=== PATIENT | male | born 1940 | race Caucasian/White ===

== ENCOUNTER 2017-07-24 10:36 | Emergency (ER) | payer OTHER ==
[~2017-07-24] VITALS: Ht 165.1 cm; Wt 73.6 kg
[2017-07-24 10:43] VITALS: BP 198/92
[2017-07-24] MEDS ORDERED: KETOROLAC 30 MG/ML VIAL IM ONE (10:45)
[2017-07-24] MEDS ORDERED: METHOCARBAMOL 500 MG TAB PO ONE (10:45)
--- NOTE | 2017-07-24 10:45 | NUR ---
77/M BIB FAMILY C/O MID BACK PAIN 10 POST TRIP AND FALL 07/23/17, DENIES LOC.DENIES N/V. AAOX4. LUNGS CLEAR BL; PATIENT STATES PAIN OF 10 AT THIS TIME; PATIENT POSITIONED FOR COMFORT; HOB ELEVATED; BEDRAILS UP X2; BED DOWN. ER MD MADE AWARE OF PT STATUS.
--- NOTE | 2017-07-24 10:50 | NUR ---
PT TAKEN TO X RAY
--- NOTE | 2017-07-24 11:44 | NUR ---
Patient being reevaluated by DR ORDONEZ at bedside.
[2017-07-24 11:49] VITALS: BP 128/87
--- NOTE | 2017-07-24 11:49 | NUR ---
Patient discharged with v/s stable. Written and verbal after care instructions given and explained. Patient alert, oriented and verbalized understanding of instructions. Ambulatory with steady gait. All questions addressed prior to discharge. ID band removed. Patient advised to follow up with PMD. Rx of tramadol, bobaxin & motrin given. Patient educated on indication of medication including possible reaction and side effects. Opportunity to ask questions provided and answered.
== END 2017-07-24 11:49 | disposition home or self-care (01) ==
LOC: MED 10:36
DX: M54.5 Low back pain (principal); W18.30XA Fall on same level, unspecified, initial encounter; Y93.89 Activity, other specified; Y92.89 Other specified places as the place of occurrence of the external cause; Y99.8 Other external cause status; I10 Essential (primary) hypertension; I48.91 Unspecified atrial fibrillation
CPT/HCPCS: 72100; 96372; 99284; J1885

== ENCOUNTER 2018-06-23 09:09 | Emergency (ER) | payer OTHER ==
[~2018-06-23] VITALS: Ht 160 cm; Wt 71.7 kg
[2018-06-23 09:15] VITALS: BP 130/73
--- NOTE | 2018-06-23 09:15 | NUR ---
c/o persistant right shoulder pain x2 wks notale soft tissue swelling right clavicular/neck area no subcutaneous Emphysema palpable denies recent injury---unable to lift rue about chest level. DENIES N/V/D; SKIN IS PINK/WARM/DRY; AAOX4 WITH EVEN AND STEADY GAIT; LUNGS CLEAR BL; HR EVEN AND REGULAR; PT DENIES ANY FEVER, CP, SOB, OR COUGH AT THIS TIME; PATIENT STATES PAIN OF 10/10 AT THIS TIME; VSS; PATIENT POSITIONED FOR COMFORT; HOB ELEVATED; BEDRAILS UP X2; BED DOWN. ER MD MADE AWARE OF PT STATUS.
--- NOTE | 2018-06-23 09:22 | NUR ---
PT AMBULATES TO BED 9
[2018-06-23] MEDS ORDERED: KETOROLAC 30 MG/ML VIAL IM ONE (09:35)
[2018-06-23] MEDS ORDERED: DEXAMETHASONE 10 MG/ML VIAL IM ONE (09:35)
--- NOTE | 2018-06-23 09:40 | NUR ---
XRAY AT BEDSIDE
[2018-06-23 10:33] VITALS: BP 130/73
== END 2018-06-23 10:35 | disposition home or self-care (01) ==
LOC: MED 09:09
DX: M75.41 Impingement syndrome of right shoulder (principal); I48.91 Unspecified atrial fibrillation; I10 Essential (primary) hypertension
CPT/HCPCS: 73030; 96372; 99283; J1100; J1885

== ENCOUNTER 2018-10-06 15:13 | Inpatient (IN) | payer OTHER ==
[~2018-10-06] VITALS: Ht 165.1 cm; Wt 72.6 kg
[~2018-10-06 15:13] MED LIST: ATOR40TA40 PO; AZIT250T3 PO; DILT90TA PO; LON2.5 PO; LOSA100T1 PO; ORE25 PO; WARF-18 PO
[2018-10-06 15:20] VITALS: BP 140/79
--- NOTE | 2018-10-06 15:20 | NUR ---
PT TRIAGED, EKG PERFORMED AT THIS TIME.
[2018-10-06] MEDS ORDERED: ACETAMINOPHEN EXTRA STRENGTH 500 MG TAB ONE (15:35)
[2018-10-06] MEDS ORDERED: ACETAMINOPHEN EXTRA STRENGTH 500 MG TAB PO ONE (15:35)
--- NOTE | 2018-10-06 15:36 | NUR ---
PT AMBULATED TO [facility], REPORT TO MIRZA LEMUS
--- NOTE | 2018-10-06 15:41 | NUR ---
PATIENT TAKEN FOR XRAY VIA WHEELCHAIR AT THIS TIME.
--- NOTE | 2018-10-06 16:18 | NUR ---
PT BIB DAUGHTER FOR PNEUMONIA. PT REPORTS BEING AT URGENT CARE THIS MORNING AND WAS REFFERRED TO ER FOR PNEUMONIA AFTER RECIEVING AN ABX INJECTION, PT UNABLE TO NAME WHAT ABX HE RECIEVED. PT REPORTS "NOT FEELING WELL FOR A COUPLE OF MONTHS". PT STATES HE FEELS SOB, O2 SAT AT 96% ON 2L VIA NC, RR EVEN, NON-LABORED, AND CRACKLES PRESENT IN RT LOWER LUNG. PT REPORTS R SIDED CP AT 5/10 THAT INCREASES WITH BREATHING. PT HAS CURRENT TEMP OF 101.4, COOLING MEASURES TAKEN, TYLENOL HAS BEEN GIVEN. PT DENIES N/V/D. VSS. ER MD TO SEE PT. MEDHX:HTN, GLAUCOMA, A-FIB
[2018-10-06 16:19] LABS: APPEARANCE,URINE CLEAR (CLEAR); BILIRUBIN,URINE NEGATIVE (NEGATIVE); BLOOD, URINE 1+ (NEGATIVE); COLOR,URINE YELLOW (YELLOW); LEUKOCYTE ESTERASE ,URINE NEGATIVE (NEGATIVE); NITRITE, URINE NEGATIVE (NEGATIVE); UGLUCOSE NEGATIVE (NEGATIVE)
[2018-10-06 16:19] LABS: BASOPHILS % (AUTO) 0.1 % (0.0-2.0); EOSINOPHILS % (AUTO) 0.1 % (0.0-4.0); HEMATOCRIT 40.3 % (36-52); HEMOGLOBIN 13.5 g/dL (12.0-18.0); LYMPHOCYTES # (AUTO) 0.5 K/uL (2.0-11.5); LYMPHOCYTES % (AUTO) 4.6 % (20.5-51.1); MEAN CORPUSCULAR HEMOGLOBIN 30 pg (27-31); MEAN CORPUSCULAR HGB CONC 33 g/dL (33-37); MEAN CORPUSCULAR VOLUME 88.6 fL (80-94); MONOCYTES # (AUTO) 0.8 K/uL (0.8-1.0); MONOCYTES % (AUTO) 7.9 % (1.7-9.3); NEUTROPHILS % (AUTO) 87.3 % (42.2-75.2); PLATELET COUNT (AUTO) 197 K/uL (140-450); RED BLOOD CELL COUNT(AUTO) 4.55 MIL/uL (4.20-6.10); RED CELL DISTRIBUTION WIDTH 15.2 % (11.6-13.7); WHITE BLOOD COUNT (AUTO) 10.3 K/uL (4.8-10.8)
[2018-10-06 16:44] LABS: ANION GAP 12.9 (8-16); CARBON DIOXIDE 27.6 mmol/L (21-32); CHLORIDE 105 mmol/L (98-107); CREATININE 1.7 mg/dL (0.7-1.3); GLUCOSE 102 mg/dL (74-106); POTASSIUM 3.5 mmol/L (3.5-5.1); SODIUM SERUM 142 mmol/L (136-145); UREA NITROGEN, BLOOD 36 mg/dL (7-18)
[2018-10-06 16:50] LABS: ALBUMIN 3.2 g/dL (3.4-5.0); ASPARTATE AMINOTRANSFERASE 25 U/L (15-37); PROTHROMBIN TIME 12.2 secs (10.8-13.4); TOTAL BILIRUBIN 0.6 mg/dL (0.0-1.0)
[2018-10-06] MEDS ORDERED: LEVOFLOXACIN 500 MG/D5W PREMIX 100 ML IV ONE (17:00)
[2018-10-06] MEDS ORDERED: DILTIAZEM 25 MG/5 ML VIAL IVP ONE ×2 (17:00→17:30)
[2018-10-06 17:06] LABS: WBC,URINE 0-5 /HPF (0-5)
[2018-10-06] MEDS ORDERED: cefTRIAXone 1,000 MG VIAL ONE (17:14)
[2018-10-06] MEDS ORDERED: NACL 0.9% 1,000 ML IV ONE (17:30)
--- NOTE | 2018-10-06 18:07 | NUR ---
PT STILL GOING IN AND OUT OF A-FIB WITH RVR. ER NOTIFIED, ADVISED TO GIVE MORE CARDIZEM. PT REPORTS CP AT 11/09 AT THIS TIME
[2018-10-06] MEDS ORDERED: MORPHINE SULFATE 4 MG/ML SYR IVP PRN (18:25)
[2018-10-06] MEDS: AZITHROMYCIN 500 MG in DEXTROSE 5% 250 ML IV SCH (18:25)
[2018-10-06] MEDS ORDERED: ONDANSETRON 4 MG/2 ML VIAL IVP PRN (18:25)
[2018-10-06] MEDS ORDERED: DILTIAZEM 125 MG/25 ML VIAL IV ONE (18:28)
--- NOTE | 2018-10-06 18:30 | NUR ---
PATIENT ARRIVED TO THE UNIT VIA GURNEY ACCOMPANIED WITH ER NURSE. AOX4 AND COOPERATIVE. DENIES PAIN. RESPIRATION EVEN AND UNLABORED. ON 2LPM NASAL CANNULA. NO SIGNS OF DISTRESS NOTED. IV ON L AC 20G, INTACT AND DRY, INFUSING PER MD ORDER. SKIN INTACT AND DRY. ABLE TO AMBULATE. CONTINENT. ORIENTED PATIENT TO THE ROOM, ON HOW TO USE THE CALL LIGHT FOR ASSISTANCE, TV, BED REMOTE, AND BATHROOM. PATIENT VERBALIZED UNDERSTANDING. DISCUSSES PLAN OF CARE WITH PATIENT AND PATIENT WAS AWARE. VITAL SIGNS TAKEN; TEMP 99.1, BP 123/66, PULSE 67, SPO2 97% ON 2LPM NC, RR 20, DENIES PAIN. MRSA NARES SWAP DONE. TELE MONITOR ATTACHED. INSTRUCTED PATIENT TO USE THE CALL LIGHT FOR ANY ASSISTANCE AND PATIENT ACKNOWLEDGED. BED IN LOW POSITION AND CALL LIGHT WITHIN REACH.
--- NOTE | 2018-10-06 18:35 | NUR ---
Patient will be admitted to care of [facility]. Admited to TELE VIA GUEDDIE W/ VSS. Will go to room 121B. Belongings list completed.
--- NOTE | 2018-10-06 18:46 | NUR ---
HARMONICA MAKER CHANGED PATIENT INTO YELLOW GOWN, YELLOW SOCKS AND PUT ON WRIST BAND. FALL RISK SIGN POSTED AND ALARM ON. INSTRUCTED PATIENT TO USE THE CALL LIGHT FOR ANY ASSISTANCE. PATIENT VERBALIZED UNDERSTANDING. TELE MONITOR ATTACHED. BED IN LOW POSITION AND CALL LIGHT WITHIN REACH.
--- NOTE | 2018-10-06 19:23 | NUR ---
ENDORSED PATIENT AT BEDSIDE TO DISC PAD PLATE FILLER NURSE FOR CONTINUITY OF CARE. PATIENT IS IN STABLE CONDITION. SAFETY MEASURES ARE IN PLACE. TELE MONITOR ATTACHED
[2018-10-06 19:30] VITALS: BP 123/66
--- NOTE | 2018-10-06 19:30 | NUR ---
RECEIVED BEDSIDE REPORT FROM ALLAN SEVERINO, PATIENT IN BED ON 2 L NC, O2SAT 100%. IV IN RIGHT AC 20 G INFUSING NS AT 100 ML/HR. PATIENT SWEDISH SPEAKING, ABLE TO ANSWER ADMISSION QUESTIONS. C/O PAIN ON RIGHT FLANK. WILL MEDICATE ACCORDING TO MD ORDER. V/S STABLE, MRSA SCREEN COLLECTED AND SENT TO LAB.
[2018-10-06] MEDS: MORPHINE SULFATE 2 MG/ML SYR IVP PRN (19:40)
--- NOTE | 2018-10-06 19:40 | NUR ---
DUE ZITHROMAX GIVEN EDUCATION ABOUT SIDE EFFECTS EXPLAINED TO PATIENT AND DAUGHTER. MEDICATED WITH MORPHINE FOR PAIN 8/10 IN RIGHT FLANK AREA.
[2018-10-06] MEDS ORDERED: AZITHROMYCIN 500 MG INJ VIAL IV ONE (19:43)
--- NOTE | 2018-10-06 20:30 | NUR ---
PATIENT SHOWING NO SIGNS OF PAIN.
[2018-10-06] MEDS: ALBUTEROL 0.083% 2.5 MG/3 ML NEBU INH PRN (20:45)
--- NOTE | 2018-10-06 21:00 | NUR ---
FAMILY AT BEDSIDE. RECEIVED PATIENT ON 2L NASAL CANNULA, PULSE OX SAT 99%. TITRATED OXYGEN TO MAINTAIN SPO2 >90% PER ORDER. O2 TITRATED TO 1L, PULSE OX SAT 99%. BREATH SOUNDS COARSE. PATIENT DEMONSTRATES STRONG COUGH EFFORT. SPONTANEOUSLY EXPECTORATED SMALL AMOUNT OF THICK, YELLOW SECRETIONS. ORAL YANKAUER SUCTIONING SET UP FOR PATIENT. PATIENT REQUESTING BREATHING TREATMENT. PRN BREATHING TX ADMINISTERED. TOLERATED TX WELL, NO ADVERSE SIDE EFFECTS. NO RESPIRATORY DISTRESS NOTED AT THIS TIME. WILL CONTINUE TO MONITOR.
--- NOTE | 2018-10-06 21:20 | NUR ---
EXPLAINED TO PATIENT FOR NEED FOR URINE SAMPLE, PATIENT VERBALIZED UNDERSTANDING. PLACED COLLECTION CUP NEAR BEDSIDE.
--- NOTE | 2018-10-06 23:00 | NUR ---
PATIENT RESTING IN BED NO SIGNS OF DISTRESS
[2018-10-07] VITALS (7 sets, daily range): BP systolic 110–135; BP diastolic 52–90
--- NOTE | 2018-10-07 01:11 | NUR ---
PATIENT C/O PAIN GAVE MORPHINE FOR SEVERE PAIN
[2018-10-07] MEDS ORDERED: DILTIAZEM 25 MG/5 ML VIAL IVP SCH (02:00)
--- NOTE | 2018-10-07 02:00 | NUR ---
HR IN THE 150'S TO 160'S SPOKE WITH DR QUEEN RECEIVED ORDERS FOR CARDIZEM IVP 10 MG ONE TIME AND CARDIZEM PO 30 MG Q6H AFTER. WILL FOLLOW WITH MD ORDERS.
--- NOTE | 2018-10-07 02:40 | NUR ---
HR IN THE 155 GAVE CARDIZEM
--- NOTE | 2018-10-07 03:11 | NUR ---
COLLECTED URINE AND SPUTUM SAMPLE SENT TO LAB
--- NOTE | 2018-10-07 04:00 | NUR ---
BP 115/90 HR FLUCTUATES FROM 130-100. PATIENT HAS TEMP 100.4 F GAVE TYLENOL.
[2018-10-07] MEDS ORDERED: cefTRIAXone 1,000 MG VIAL ONE (04:40)
[2018-10-07] MEDS: ACETAMINOPHEN 325 MG TAB PO PRN ×3 (04:41→23:31)
--- NOTE | 2018-10-07 06:00 | NUR ---
ASSISTED PATIENT TO RESTROOM, NEEDS ONE PERSON ASSIST
--- NOTE | 2018-10-07 07:18 | NUR ---
ENDORSED PATIENT TO DAY SHIFT NURSE, PATIENT STABLE.
--- NOTE | 2018-10-07 07:19 | NUR ---
RECEIVED REPORT FROM PM NURSE AT BEDSIDE. PT LYING ON HIS BED. ON O2 LPM VIA NC. NO SIGN OF DISTRESS NOTED. PT ON FALL RISK PRECAUTION. CALL LIGHT WITHIN PT REACH. HAS IV AC 20 G, IVF TKO. SKIN IS INTACT. INFORMED TO USE CALL LIGHT FOR ANY HELP. BED ALARM ON. WILL CONTINUE TO MONITOR PT.
[2018-10-07 08:11] LABS: BASOPHILS % (AUTO) 0.2 % (0.0-2.0); HEMATOCRIT 37.9 % (36-52); LYMPHOCYTES # (AUTO) 0.5 K/uL (2.0-11.5); LYMPHOCYTES % (AUTO) 5.6 % (20.5-51.1); MEAN CORPUSCULAR HEMOGLOBIN 30 pg (27-31); MEAN CORPUSCULAR HGB CONC 34 g/dL (33-37); MEAN CORPUSCULAR VOLUME 88.7 fL (80-94); MONOCYTES # (AUTO) 0.8 K/uL (0.8-1.0); MONOCYTES % (AUTO) 8.6 % (1.7-9.3); NEUTROPHILS # (AUTO) 7.7 K/uL (1.8-7.7); NEUTROPHILS % (AUTO) 85.6 % (42.2-75.2); PLATELET COUNT (AUTO) 167 K/uL (140-450); RED BLOOD CELL COUNT(AUTO) 4.27 MIL/uL (4.20-6.10)
[2018-10-07 08:20] LABS: ALBUMIN 2.5 g/dL (3.4-5.0); ANION GAP 15.8 (8-16); ASPARTATE AMINOTRANSFERASE 27 U/L (15-37); CARBON DIOXIDE 23.4 mmol/L (21-32); CHLORIDE 105 mmol/L (98-107); CREATININE 1.8 mg/dL (0.7-1.3); GLUCOSE 106 mg/dL (74-106); POTASSIUM 3.2 mmol/L (3.5-5.1); SODIUM SERUM 141 mmol/L (136-145); TOTAL BILIRUBIN 0.4 mg/dL (0.0-1.0); UREA NITROGEN, BLOOD 35 mg/dL (7-18)
[2018-10-07] MEDS: DILTIAZEM 30 MG TAB PO SCH ×4 (08:32→23:31)
[2018-10-07] MEDS: ENOXAPARIN 30 MG/0.3 ML SYR SUBQ SCH (08:35)
--- NOTE | 2018-10-07 08:36 | NUR ---
ADMINISTERED MEDS TO PT ORDERED. ASSISTED PT TO RESTROOM, SITTING ON HIS CHAIR NOW. PT HAS HIGH HR. ADMINISTERED CARDIZEM ORDERED. CALL LIGHT WITHIN PT REACH. INFORMED TO USE CALL LIGHT FOR ANY HELP. WILL CONTINUE TO MONITOR PT.
[2018-10-07] MEDS: ALBUTEROL 0.083% 2.5 MG/3 ML NEBU INH PRN (09:46)
--- NOTE | 2018-10-07 09:47 | NUR ---
PATIENT SITTING UP IN CHAIR OFF SUPPLEMENTAL OXYGEN POST HHN THERAPY PLACED BACK ON SUPPLEMENTAL OXYGEN AT 2 LPM VIA NC
--- NOTE | 2018-10-07 10:02 | NUR ---
SATURATION 92% ON SUPPLEMENTAL OXYGEN AT 2 LPM VIA NC INCREASED FIO2 TO 3 LPM TO KEEP SATURATION GREATER THAN 92% SITEL/RN NOTIFIED
--- NOTE | 2018-10-07 10:30 | NUR ---
CHECKED ON THE PT. BACK TO HIS BED. PT ON O2 VIA NC 3LPM. ATE HIS BREAKFAST. DENIES ANY DISTRESS OR PAIN. BED ALARM ON. PT LYING COMFORTABLY IN HIS BED. CALL LIGHT WITHIN PT REACH. WILL CONTINUE TO MONITOR PT.
--- NOTE | 2018-10-07 11:16 | NUR ---
PT DAUGHTER AT THE BEDSIDE. UPDATED ON PT CONDITION HELPED WITH SUCTION. PT STABLE AT THIS TIME. NO SIGN OF DISTRESS NOTED. WILL CONTINUE TO MONITOR PT.
[2018-10-07] MEDS ORDERED: NACL 0.45% 1,000 ML IV SCH (11:30)
[2018-10-07] MEDS ORDERED: POTASSIUM CHLORIDE 10 MEQ TABER PO SCH (12:30)
[2018-10-07] MEDS: ALBUTEROL 0.083% 2.5 MG/3 ML NEBU INH SCH ×2 (13:51→20:54)
--- NOTE | 2018-10-07 13:51 | NUR ---
PATIENT PRESENTING WITH INCREASED SOB POST AMBULATING TO RESTROOM WITHOUT SUPPLEMENTAL OXYGEN VIA NC POST HHN THERAPY PLACED BACK ON SUPPLEMENTAL OXYGEN AT 3 LPM VIA NC ADDED TUBING EXTENSION X 2 EDUCATION PROVIDED TO PATIENT ON RETAINING NC WHILE AMBULATING SITAL/RN NOTIFIED
[2018-10-07] MEDS ORDERED: NACL 0.9% 1,000 ML IV SCH (14:15)
[2018-10-07] MEDS: NACL 0.9% 1,000 ML IV SCH (14:20)
--- NOTE | 2018-10-07 17:03 | NUR ---
CHECKED ON THE PT. SITTING ON HIS BED. FRIEND AT THE BEDSIDE. PT DENIES ANY PAIN OR DISTRESS. PT ON O2 3LPM AT THIS TIME. CALL LIGHT WITHIN PT REACH. NO SIGN OF DISTRESS NOTED. WILL CONTINUE TO MONITOR PT.
[2018-10-07] MEDS: AZITHROMYCIN 500 MG in DEXTROSE 5% 250 ML IV SCH (18:52)
--- NOTE | 2018-10-07 19:05 | NUR ---
ENDORSED PT TO PM NURSE AT BEDSIDE. PT IN STABLE CONDITION.
--- NOTE | 2018-10-07 19:06 | NUR ---
RECEIVED PT ON HIGH FOWLERS POSITION, AAOX4, VITAL SIGNS STABLE, SAT-95% ON 3L NASAL CANNULA, OCCASIONAL COUGH NOTED, ZITHROMAX IVPB INFUSING WELL, COARSE LUNG SOUNDS, PLAN OF CARE DISCUSSED, SAFETY MEASURES IN PLACE, CALL LIGHT WITHIN REACH.
--- NOTE | 2018-10-07 20:30 | NUR ---
PT AMBULATED TO BR WITH STANDBY ASSIST AND VOIDED FREELY, SOB ON EXERTION, MAINTAIN ON O2 AT 2L/NC, HOB ELEVATED FOR COMFORT, STATED FEELING BETTER WHEN AT REST, MONITORED CLOSELY.
--- NOTE | 2018-10-07 21:06 | NUR ---
RECEIVED PATIENT ON 3L NASAL CANNULA, PULSE OX SAT 96%. SCHEDULED BREATHING TREATMENT ADMINISTERED. TOLERATED TX WELL, NO ADVERSE SIDE EFFECTS. PATIENT ORALLY SUCTIONING HIMSELF USING YANKAUER. PATIENT SUCTIONED LARGE AMOUNT OF THICK, BROWN SECRETIONS. YANKAUER SUCTIONING EQUIPMENT CLEAN AND CHANGED. PLACED PATIENT BACK ON NASAL CANNULA. TITRATED OXYGEN TO 2L, PULSE OX 97%. RN AWARE. WILL MONITOR AND MAINTAIN SPO2 >92%. NO RESPIRATORY DISTRESS NOTED AT THIS TIME. WILL CONTINUE TO MONITOR.
[2018-10-07] MEDS ORDERED: TIM.5OS OP (23:38)
[2018-10-07] MEDS ORDERED: XALOS OP (23:38)
[2018-10-07] MEDS ORDERED: ALPOS OP (23:38)
[2018-10-08] VITALS: BP 133/79
--- NOTE | 2018-10-08 00:42 | NUR ---
PT HR WENT UP 135-150 BPM AND SEVERAL MINUTES LATER WILL GO BACK DOWN TO 70-90 BPM, TEMP-98.9, BP-94/62, ASYMPTOMATIC, PT AWAKE AND VERBALLY RESPONSIVE, NO SOB NOTED, HR CYCLES LIKE THIS FOR SEVERAL MINUTES AND THEN STABILIZED ON 70-80 BPM, MONITORED CLOSELY.
--- NOTE | 2018-10-08 01:25 | NUR ---
PT HAD ANOTHER EPISODE OF HR WENT UP TO 140'S BPM A FIB THEN GOES DOWN TO 60'S BPM SINUS RHYTHM, PT SLEEPING, EASILY AROUSABLE, DENIES PAIN AND NO SOB NOTED, MONITORED CLOSELY.
[2018-10-08] MEDS: ALBUTEROL 0.083% 2.5 MG/3 ML NEBU INH SCH ×4 (01:45→19:29)
--- NOTE | 2018-10-08 01:55 | NUR ---
SCHEDULED BREATHING TREATMENT ADMINISTERED. TOLERATED TX WELL, NO ADVERSE SIDE EFFECTS. PLACED BACK ON 2L NASAL CANNULA POST TX. NO RESPIRATORY DISTRESS NOTED AT THIS TIME. WILL CONTINUE TO MONITOR.
--- NOTE | 2018-10-08 02:03 | NUR ---
PT HR STILL CYCLES BETWEEN 140'SBPM A FIB TO 50'S BPM SB/SR, BP-98/51, SAT-95%, TEMP-98.7, PT AROUSABLE TO NAME AND VERBALLY RESPONSIVE, DENIES ANY PAIN AND NO SOB NOTED, MONITORED CLOSELY.
--- NOTE | 2018-10-08 02:53 | NUR ---
PT AMBULATED TO BR WITH STEADY GAIT, VOIDED FREELY, PT THEN WASHED HIS FACE AND BRUSHED HIS TEETH, PT WENT BACK TO BED, SOB ON EXERTION, MAINTAIN ON HIGH FOWLERS POSITION, O2 AT 2L NASAL CANNULA, UNCONTROLLED A-FIB IN THE 130'S, DENIES CHEST PAIN, NO SOB NOTED WHEN AT REST, MONITORED CLOSELY.
[2018-10-08 04:00] VITALS: BP 98/57
--- NOTE | 2018-10-08 04:00 | NUR ---
PT SLEEPING, EASILY AROUSABLE, VITAL SIGNS TAKEN, BP STABLE, UNCONTROLLED A-FIB WITH 111 BPM, AFEBRILE, ASYMPTOMATIC, CONTINUE TO MONITOR CLOSELY.
[2018-10-08] MEDS: NACL 0.9% 1,000 ML IV SCH ×2 (05:09→14:31)
[2018-10-08] MEDS: DILTIAZEM 30 MG TAB PO SCH ×3 (05:36→17:30)
--- NOTE | 2018-10-08 05:40 | NUR ---
UNCONTROLLED A-FIB ON TELE WITH 131 BPM, BP-118/66, DUE CARDIZEM PO GIVEN, PT ASYMPTOMATIC, NO DISTRESS NOTED, MONITORED CLOSELY.
[2018-10-08 06:41] LABS: BASOPHILS % (AUTO) 0.2 % (0.0-2.0); EOSINOPHILS % (AUTO) 0.2 % (0.0-4.0); HEMATOCRIT 37.1 % (36-52); HEMOGLOBIN 12.5 g/dL (12.0-18.0); LYMPHOCYTES # (AUTO) 0.6 K/uL (2.0-11.5); LYMPHOCYTES % (AUTO) 7.8 % (20.5-51.1); MEAN CORPUSCULAR HEMOGLOBIN 30 pg (27-31); MEAN CORPUSCULAR HGB CONC 34 g/dL (33-37); MEAN CORPUSCULAR VOLUME 88.3 fL (80-94); MONOCYTES # (AUTO) 0.5 K/uL (0.8-1.0); MONOCYTES % (AUTO) 6.8 % (1.7-9.3); NEUTROPHILS # (AUTO) 6.2 K/uL (1.8-7.7); PLATELET COUNT (AUTO) 165 K/uL (140-450); RED BLOOD CELL COUNT(AUTO) 4.21 MIL/uL (4.20-6.10); RED CELL DISTRIBUTION WIDTH 15.3 % (11.6-13.7); WHITE BLOOD COUNT (AUTO) 7.3 K/uL (4.8-10.8)
[2018-10-08 06:44] LABS: ANION GAP 12.6 (8-16); CARBON DIOXIDE 25.8 mmol/L (21-32); CHLORIDE 104 mmol/L (98-107); CREATININE 1.8 mg/dL (0.7-1.3); GLUCOSE 120 mg/dL (74-106); POTASSIUM 3.4 mmol/L (3.5-5.1); SODIUM SERUM 139 mmol/L (136-145); UREA NITROGEN, BLOOD 38 mg/dL (7-18)
--- NOTE | 2018-10-08 07:10 | NUR ---
RECEIVED PT REPORT FROM SUPERVISOR FORMING AND TEMPERING RN. PT IS AAOX4, NO S/S OF ACUTE DISTRESS ON 2L NASAL CANNULA. PT ABLE TO USE YANKAUER TO SUCTION HIS SPUTUM. PT HAS PRODUCTIVE COUGH. LUNG SOUNDS COARSE. PLAN OF CARE DISCUSSED, BED IN LOWEST POSITION, SAFETY MEASURES IN PLACE, CALL LIGHT WITHIN REACH.
--- NOTE | 2018-10-08 07:12 | NUR ---
PT EASILY AROUSABLE, NO DISTRESS NOTED, REPORT GIVEN TO ALLAN KRUSE FOR CONTINUITY OF CARE.
[2018-10-08 08:00] VITALS: BP 124/57
--- NOTE | 2018-10-08 08:25 | NUR ---
PATIENT HAS BEEN SCREENED AND CATEGORIZED MODERATE NUTRITION RISK. PATIENT WILL BE SEEN WITHIN 3-5 DAYS OF ADMISSION. 10/09/18SEAN LIZ RD
[2018-10-08] MEDS: ENOXAPARIN 30 MG/0.3 ML SYR SUBQ SCH (09:35)
--- NOTE | 2018-10-08 10:30 | NUR ---
PT C/O FEELS HOT, CHECKED TEMP 99.8 AXILLARY. TYLENOL WILL BE GIVEN.
[2018-10-08] MEDS: ACETAMINOPHEN 325 MG TAB PO PRN ×2 (10:56→17:30)
[2018-10-08 12:00] VITALS: BP 125/77
--- NOTE | 2018-10-08 13:14 | NUR ---
BREATHING TX NOT ADMINISTERED DUE TO ELEVATED PULSE. PT NOT SOB AT THIS TIME.
--- NOTE | 2018-10-08 13:30 | NUR ---
PROVIDED PT WITH ICE PACK FOR THE NECK.
--- NOTE | 2018-10-08 13:35 | NUR ---
CALLED DR CLAIRE, MADE HIM AWARE PT HAS UNCONTROLLED AFIB HR AT 140-150. SOMETIMES SWITCHES BACK TO NSR HR. PT ALREADY HAD CARDIZEM 30MG Q6H. DR WILCOX METOPROLOL 25MG BID, WILL GIVE ONE DOSE NOW.
[2018-10-08] MEDS ORDERED: METOPROLOL 25 MG TAB PO SCH (14:00)
[2018-10-08 16:00] VITALS: BP 119/67
[2018-10-08] MEDS: AZITHROMYCIN 500 MG in DEXTROSE 5% 250 ML IV SCH (17:33)
--- NOTE | 2018-10-08 19:15 | NUR ---
REPORT GIVEN TO LEAD MASSAGE THERAPIST RN FOR CONTINUITY OF CARE. PT IS STABLE AT THIS TIME.
[2018-10-08 20:00] VITALS: BP 123/63
--- NOTE | 2018-10-08 20:30 | NUR ---
PT GOT BACK FROM THE BATHROOM. MEDICATIONS GIVEN W/ TEACHINGS. NEW IV INSERTED ON LEFT WRIST G22 W/ GOOD BLOOD RETURN. IVF RESUMED ORDERED. PT DENIES ANY OTHER NEEDS. NEW YANKEUR FOR SUCTION GIVEN.
--- NOTE | 2018-10-08 20:30 | NUR ---
SEEN PT AWAKE, ALERT AND ORIENTED. INITIAL ASSESSMENT DONE. VITAL SIGNS CHECKED. PT COMPLAINING OF HIS IV. PT SAID TO REMOVE IT. IV TUBING DISCONNECTED AND WILL INSERT NEW IV. PT DENIES ANY PAIN AT THIS TIME. SAFETY REINFORCED. CALL LIGHT W/IN REACH. WILL CONTINUE TO MONITOR. Addendum: 10/09/18 at 0213 by Paula Rich RN DOCUMENTATION AT 1950
[2018-10-08] MEDS ORDERED: LATANOPROST 0.005% OP 2.5 ML BTL OP SCH (21:00)
[2018-10-08] MEDS: METOPROLOL 25 MG TAB PO SCH (21:11)
--- NOTE | 2018-10-08 21:12 | NUR ---
SPOKE TO DR BURDICK REGARDING PT'S CONDITION. NEW ORDERS RECEIVED.
[2018-10-08] MEDS: BRIMONIDINE TARTRATE 0.2% OP 5 ML BTL OP SCH (21:19)
[2018-10-08] MEDS: TIMOLOL OP 0.5% 5 ML BTL OP SCH (21:22)
[2018-10-09] VITALS: BP 133/79
--- NOTE | 2018-10-09 00:25 | NUR ---
SEEN PT ASLEEP BUT EASILY AROUSABLE. VITAL SIGNS CHECKED. PT'S HR:63. CARDIZEM HELD. PT DENIES ANY PAIN OR DISCOMFORT. PT DENIES ANY NEEDS. CALL LIGHT W/IN REACH.
[2018-10-09] MEDS: ALBUTEROL 0.083% 2.5 MG/3 ML NEBU INH SCH ×3 (01:47→13:00)
[2018-10-09] MEDS: MORPHINE SULFATE 2 MG/ML SYR IVP PRN (01:58)
--- NOTE | 2018-10-09 02:00 | NUR ---
PT'S HR IN AND OUT OF UNCONTROLLED AFIB THEN SR THEN SB. SEEN PT ASLEEP AND APPEARS COMFORTABLE. WILL GIVE CARDIZEM PO ORDERED. WILL CONTINUE TO MONITOR.
[2018-10-09] MEDS: DILTIAZEM 30 MG TAB PO SCH ×4 (02:17→12:00)
[2018-10-09 04:55] VITALS: BP 144/91
--- NOTE | 2018-10-09 05:00 | NUR ---
SEEN PT AWAKE. VITAL SIGNS CHECKED. PT DENIES ANY DISCOMFORT. ASSISTED PT TO THE BATHROOM AND BACK TO BED. CALL LIGHT W/IN REACH.
--- NOTE | 2018-10-09 06:10 | NUR ---
PT GOT UP TO THE SINK TO WASH UP AND BRUSH TEETH. AFTER WHICH, MEDICATIONS GIVEN W/ TEACHINGS. PT VERBALIZED UNDERSTANDING.
--- NOTE | 2018-10-09 06:55 | NUR ---
NO HHN GIVEN DUE TO PT'S HEART RATE OF 145 PT IS IN NO DISTRESS AT THIS TIME PT AWAKE AND ALERT
--- NOTE | 2018-10-09 07:25 | NUR ---
PT REPORT GIVEN TO DAYSHIFT NURSE.
--- NOTE | 2018-10-09 07:27 | NUR ---
RECEIVED BEDSIDE REPORT FROM DRY TRANSFER MAN NURSE. PATIENT IS AWAKE AND RESTING ON BED AT THIS TIME. AOX4. DENIES PAIN AND SOB. RESPIRATION EVEN AND UNLABORED. ON 2LPM NASAL CANNULA. NO SIGNS OF DISTRESS NOTED. IV ON L WRIST 22G, INTACT AND DRY, INFUSING PER MD ORDER. SKIN INTACT AND DRY. ABLE TO AMBULATE. PATIENT IS CONTINENT. URANAL AT BEDSIDE. INSTRUCTED PATIENT TO URINE INTO THE URANAL FOR INTAKE AND OUTPUT MEASUREMENT. DISCUSSES PLAN OF CARE WITH PATIENT AND PATIENT WAS AWARE. TELE MONITOR ATTACHED. INSTRUCTED PATIENT TO USE THE CALL LIGHT FOR ANY ASSISTANCE AND PATIENT ACKNOWLEDGED. BED IN LOW POSITION AND CALL LIGHT WITHIN REACH.
[2018-10-09 07:34] LABS: ANION GAP 16.9 (8-16); CARBON DIOXIDE 23.9 mmol/L (21-32); CHLORIDE 103 mmol/L (98-107); CREATININE 1.5 mg/dL (0.7-1.3); GLUCOSE 99 mg/dL (74-106); SODIUM SERUM 141 mmol/L (136-145); UREA NITROGEN, BLOOD 32 mg/dL (7-18)
[2018-10-09 07:46] LABS: BASOPHILS % (AUTO) 0.2 % (0.0-2.0); EOSINOPHILS # (AUTO) 0.1 K/uL (0-0.4); HEMATOCRIT 38.4 % (36-52); HEMOGLOBIN 12.8 g/dL (12.0-18.0); LYMPHOCYTES # (AUTO) 0.9 K/uL (2.0-11.5); LYMPHOCYTES % (AUTO) 13.9 % (20.5-51.1); MEAN CORPUSCULAR HEMOGLOBIN 29 pg (27-31); MEAN CORPUSCULAR HGB CONC 33 g/dL (33-37); MEAN CORPUSCULAR VOLUME 88.1 fL (80-94); MONOCYTES # (AUTO) 0.6 K/uL (0.8-1.0); MONOCYTES % (AUTO) 8.8 % (1.7-9.3); NEUTROPHILS # (AUTO) 5.1 K/uL (1.8-7.7); NEUTROPHILS % (AUTO) 76.1 % (42.2-75.2); PLATELET COUNT (AUTO) 210 K/uL (140-450); RED BLOOD CELL COUNT(AUTO) 4.36 MIL/uL (4.20-6.10); RED CELL DISTRIBUTION WIDTH 15.3 % (11.6-13.7); WHITE BLOOD COUNT (AUTO) 6.7 K/uL (4.8-10.8)
[2018-10-09 08:00] VITALS: BP 121/61
[2018-10-09 08:18] LABS: POTASSIUM 2.8 mmol/L (3.5-5.1)
--- NOTE | 2018-10-09 08:28 | NUR ---
RECEIVED CRITICAL LAB FOR POTASSIUM 2.[address] CLAIRE. RECEIVED TORB FROM THAT 40MEQ PO Q4H 2 DOSES. READ BACK ORDER AND CONFIRMED.
[2018-10-09] MEDS: METOPROLOL 25 MG TAB PO SCH (09:00)
[2018-10-09] MEDS: BRIMONIDINE TARTRATE 0.2% OP 5 ML BTL OP SCH (09:00)
[2018-10-09] MEDS: TIMOLOL OP 0.5% 5 ML BTL OP SCH (09:01)
[2018-10-09] MEDS: ENOXAPARIN 30 MG/0.3 ML SYR SUBQ SCH (09:02)
--- NOTE | 2018-10-09 09:08 | NUR ---
ADMINISTERED MEDS PER ORDER, PATIENT TOLERATE WELL. DENIES PAIN AND SOB. PATIENT IS RESTING ON BED AND WATCHING TV. INSTRUCTED PATIENT TO USE THE CALL LIGHT FOR ANY ASSISTANCE. SAFETY MEASURES IN PLACE. TELE MONITOR ATTACHED.
[2018-10-09] MEDS: POTASSIUM CHLORIDE 10 MEQ TABER PO SCH ×2 (10:08→14:03)
--- NOTE | 2018-10-09 10:08 | NUR ---
ADMINISTERED PO POTASSIUM CHLORIDE PER MD ORDER FOR AM LAB POTASSIUM LEVEL 2.8, PATIENT TOLERATED WELL. PATIENT IS SITTING ON THE CHAIR AND WATCHING TV. DENIES PAIN. NO SIGNS OF DISTRESS NOTED. NS CANNULA IS ON. TELE MONITOR ATTACHED.
--- NOTE | 2018-10-09 11:42 | NUR ---
PATIENT IS RESTING ON BED AT THIS TIME. DENIES PAIN AND SOB. NO SIGNS OF DISTRESS NOTED. DAUGHTER ALEKSANDR IS AT BEDSIDE. TELE MONITOR ATTACHED.
[2018-10-09] MEDS ORDERED: CAR30 PO (11:45)
[2018-10-09] MEDS ORDERED: METO25TA PO (11:45)
[2018-10-09] MEDS ORDERED: LEVO750T2 PO (11:45)
[2018-10-09] MEDS ORDERED: ASPI-1718 PO (11:45)
[2018-10-09] MEDS: NACL 0.9% 1,000 ML IV SCH (11:54)
[2018-10-09 12:00] VITALS: BP 121/62
--- NOTE | 2018-10-09 13:35 | NUR ---
PATIENT IS SITTING UP ON BED AND TALKING TO DAUGHTER AT BEDSIDE. DENIES CHEST PAIN AND SOB. NO SIGNS OF DISTRESS NOTED.
--- NOTE | 2018-10-09 14:05 | NUR ---
ADMINISTERED MEDS PER MD ORDER, PATIENT TOLERATED WELL. NO SIGNS OF DISTRESS NOTED. DAUGHTER ALEKSANDR IS AT BEDSIDE.
--- NOTE | 2018-10-09 14:20 | NUR ---
SYED NOTE FAXED ORDER FOR HOME HEALTH TO [facility]. PER [facility] SYED CARTER # [phone] SHE WILL SET UP PATIENT'S HOME HEALTH. CHARGE NURSE ALEJANDRA ROSALES.
--- NOTE | 2018-10-09 14:40 | NUR ---
DISCHARGE INSTRUCTIONS PROVIDED TO PATIENT AND DAUGHTER ALEKSANDR. EDUCATED PATIENT AND DAUGHTER ALEKSANDR ON MD FOLLOW UP, MEDICATIONS REGIMEN, SIDE EFFECTS, DISEASE MANAGEMENT AND SIGN AND SYMPTOMS, DIET REGIMEN. ANSWERED ALL PATIENT AND DAUGHTER ALEKSANDR QUESTIONS, AND BOTH VERBALIZED UNDERSTANDING. PRESCRIPTIONS HANDED TO PATIENT. REMOVED ALL ARM BANDS, AND TELE MONITOR. D/C IV AND IV CANNULA INTACT, NO BLEEDING AT IV SITE, PATIENT TOLERATED WELL. PATIENT CHANGED INTO HIS OWN CLOTHES AND TOOK ALL HIS BELONGINGS, ESCORTED PATIENT TO THE LOBBY WITH THE WHEELCHAIR. PATIENT IS DISCHARGE AT THIS TIME AND IN A STABLE CONDITION.
== END 2018-10-09 14:40 | disposition home health service (06) | DRG 682 ==
LOC: MED 15:13 → MTU 18:14
PROVIDERS: ADMIT Internal Medicine Nephrology; ATTEND Internal Medicine Nephrology
DX: N17.9 Acute kidney failure, unspecified (principal); J18.1 Lobar pneumonia, unspecified organism; J96.00 Acute respiratory failure, unspecified whether with hypoxia or hypercapnia; J44.0 Chronic obstructive pulmonary disease with (acute) lower respiratory infection; J44.1 Chronic obstructive pulmonary disease with (acute) exacerbation; E86.0 Dehydration; I48.2 Chronic atrial fibrillation; I12.9 Hypertensive chronic kidney disease with stage 1 through stage 4 chronic kidney disease, or unspecified chronic kidney disease; N18.3 Chronic kidney disease, stage 3 (moderate)
CPT/HCPCS: 36415; 36600; 71045; 76770; 80048; 80053; 81001; 82550; 82553; 82803; 83605; 83735; 83874; 83880; 84484; 85025; 85610; 85730; 87040; 87070; 87081; 87086; 87205; 87804; 93005; 94640; 96365; 96375; 99291; J0456; J0696; J1650; J1956; J2270; J3490; J7030; J7060; J7613; Q0092

== ENCOUNTER 2019-07-24 09:47 | Emergency (ER) | payer OTHER ==
[~2019-07-24] VITALS: Ht 165.1 cm; Wt 72.6 kg
[~2019-07-24 09:47] MED LIST changes: +ALPOS OP; +ASPI-1718 PO; +CAR30 PO; +LEVO750T2 PO; +METO25TA PO; +TIM.5OS OP; +XALOS OP
[2019-07-24 10:00] VITALS: BP 151/71
--- NOTE | 2019-07-24 10:25 | NUR ---
PT SENT BY PMD FOR HEMATURIA AND DYSURIA X 2 DAYS. PT REPORTS 2/10 PAIN WITH URINATION. PT CONTINENT. DENIES ANY OTHER S/S. PT AMBULATORY, ALERT AND AWAKE, VS STABLE.
--- NOTE | 2019-07-24 11:30 | NUR ---
PT RESTING IN BED. NO DISTRESS NOTED
[2019-07-24] MEDS ORDERED: cefTRIAXone 1,000 MG in LIDOCAINE MPF 1% 2.1 ML IM ONE (11:45)
[2019-07-24] MEDS ORDERED: PHENAZOPYRIDINE 100 MG TAB PO ONE (11:45)
[2019-07-24] MEDS ORDERED: LIDOCAINE MPF 1% 5 ML ONE (11:52)
[2019-07-24] MEDS ORDERED: cefTRIAXone 1,000 MG VIAL ONE (11:52)
--- NOTE | 2019-07-24 12:01 | NUR ---
ROCEPHIN AND PYRIDIUM ADMINISTRED
[2019-07-24 12:45] VITALS: BP 143/67
--- NOTE | 2019-07-24 12:45 | NUR ---
NADR, PAIN 0/10.
--- NOTE | 2019-07-24 12:45 | NUR ---
Patient discharged with v/s stable. Written and verbal after care instructions given and explained REGARDING UTI. Patient alert, oriented and verbalized understanding of instructions. Ambulatory with steady gait. All questions addressed prior to discharge. ID band removed. Patient advised to follow up with PMD. Rx of LEVAQUIN given. Patient educated on indication of medication including possible reaction and side effects. Opportunity to ask questions provided and answered. IINSTRUCTED PT THAT PYRIDIUM WILL TURN URINE ORANGE/RED IN COLOR, NORMAL FINDING
== END 2019-07-24 12:45 | disposition home or self-care (01) ==
LOC: MED 09:47
DX: N39.0 Urinary tract infection, site not specified (principal); R31.9 Hematuria, unspecified; I10 Essential (primary) hypertension; I48.91 Unspecified atrial fibrillation; Z79.899 Other long term (current) drug therapy; Z79.82 Long term (current) use of aspirin
CPT/HCPCS: 81002; 96372; 99283; J0696; J2001; 99281

== ENCOUNTER 2022-01-04 14:02 | Emergency (ER) | payer OTHER ==
[~2022-01-04] VITALS: Ht 165.1 cm; Wt 74.0 kg
[~2022-01-04 14:02] MED LIST changes: -ASPI-1718 PO; +ASPI-1822 PO; -CAR30 PO; +DILT30TA10 PO; +HYDR-4004 PO; -ORE25 PO; -WARF-18 PO; +WARF-83 PO
[2022-01-04 14:23] VITALS: BP 107/71
[2022-01-04 16:27] LABS: BASOPHILS % (AUTO) 0.6 % (0.0-2.0); EOSINOPHILS # (AUTO) 0.1 K/uL (0-0.4); EOSINOPHILS % (AUTO) 1.1 % (0.0-4.0); HEMATOCRIT 41.4 % (36-52); HEMOGLOBIN 13.6 g/dL (12.0-18.0); LYMPHOCYTES # (AUTO) 1.6 K/uL (2.0-11.5); LYMPHOCYTES % (AUTO) 32.8 % (20.5-51.1); MEAN CORPUSCULAR HEMOGLOBIN 29 pg (27-31); MEAN CORPUSCULAR HGB CONC 33 g/dL (33-37); MEAN CORPUSCULAR VOLUME 88.8 fL (80-94); MONOCYTES # (AUTO) 0.6 K/uL (0.8-1.0); MONOCYTES % (AUTO) 12.1 % (1.7-9.3); NEUTROPHILS # (AUTO) 2.7 K/uL (1.8-7.7); NEUTROPHILS % (AUTO) 53.4 % (42.2-75.2); PLATELET COUNT (AUTO) 248 K/uL (140-450); RED BLOOD CELL COUNT(AUTO) 4.67 MIL/uL (4.20-6.10)
[2022-01-04] MEDS ORDERED: ALBUTEROL SULFATE/IPRATROPIU 3 ML SOL IH ONE (16:45)
[2022-01-04 17:03] LABS: ALBUMIN 4.2 g/dL (3.4-5.0); ANION GAP 15.2 (8-16); ASPARTATE AMINOTRANSFERASE 27 U/L (15-37); CHLORIDE 104 mmol/L (98-107); CREATININE 1.4 mg/dL (0.6-1.3); GLUCOSE 95 mg/dL (74-106); POTASSIUM 3.2 mmol/L (3.5-5.1); SODIUM SERUM 144 mmol/L (136-145); TOTAL BILIRUBIN 1.3 mg/dL (0.0-1.0); UREA NITROGEN, BLOOD 22 mg/dL (7-18)
--- NOTE | 2022-01-04 17:04 | NUR ---
HHN THERAPY AND RESPIRATORY DRUG GIVEN ORDERED ENCOURAGED PATEITN FOR INTERMITTENT DEEP BREATH AND COUGH DURING THERAPY
[2022-01-04] MEDS ORDERED: AZIT250T4 PO (18:40)
[2022-01-04] MEDS ORDERED: ROBAC PO (18:40)
[2022-01-04] MEDS ORDERED: POTASSIUM CHLORIDE 10 MEQ TABER PO ONE (18:45)
--- NOTE | 2022-01-04 19:27 | NUR ---
ATTEMPTED TO CALL PATIENT FOR DISCHARGE PAPERS, CURRENTLY NOT SITTING IN THE LOBBY OR OUTSIDE
[2022-01-04 20:40] VITALS: BP 110/79
--- NOTE | 2022-01-04 20:40 | NUR ---
Patient discharged with v/s stable. Written and verbal after care instructions given and explained. Patient alert, oriented and verbalized understanding of instructions. Ambulatory with steady gait. All questions addressed prior to discharge. ID band removed. Patient advised to follow up with PMD. Rx of azithromycin, guaifenesin, codeine syrup given. Patient educated on indication of medication including possible reaction and side effects. Opportunity to ask questions provided and answered.
== END 2022-01-04 21:30 | disposition home or self-care (01) ==
LOC: MED 14:02
DX: J20.9 Acute bronchitis, unspecified (principal); I10 Essential (primary) hypertension; I48.91 Unspecified atrial fibrillation; I51.7 Cardiomegaly
CPT/HCPCS: 36415; 71045; 80053; 83880; 84484; 85025; 93005; 94640; 99285